=== PATIENT | female | born 1985 | race Caucasian/White ===

== ENCOUNTER 2018-10-23 13:01 | Inpatient (IN) | payer OTHER ==
[2018-10-23] MEDS ORDERED: SODIUM CHLORIDE 0.9% 1,000 ML IV STA (13:32)
[2018-10-23] MEDS ORDERED: ACETAMINOPHEN TAB 325 MG TAB PO STA (13:32)
[2018-10-23] MEDS ORDERED: LORazepam 2 MG/ML INJ IV STA (13:33)
--- NOTE | 2018-10-23 13:42 | ED ---
General Adult HPI - General Source: patient, RN notes reviewed Mode of arrival: EMS Limitations: no limitations <Michael Gupta - Last Filed: 10/23/18 17:49> <Joshua Dove - Last Filed: 10/23/18 17:59> - General Chief complaint: Chest Pain Stated complaint: anxiety Time Seen by Provider: 10/23/18 13:05 - History of Present Illness Initial comments: 33-year-old female with a past medical history of anxiety, MRSA, IV drug abuse presents to the emergency department for a chief complaint of chest pain. Patient states that she started to have an anxiety attack yesterday because she was supposed to go to [place] for Xanax and heroin use. She never made it to [place]. States that her symptoms are left-sided chest pain with shortness of breath. States that breathing makes this pain worse. States that she has had pain like this before but the pain is always on the right side. States movement and touching the area makes the pain worse as well. Denies any fevers or chills. No history of blood clots.Patient has no other complaints at this time including abdominal pain, nausea or vomiting, headache, or visual changes. (Michael Gupta) - Related Data Home Medications Medication Instructions Recorded Confirmed buPROPion HCL [Wellbutrin XL] 150 mg PO DAILY 10/23/18 10/23/18 Allergies Allergy/AdvReac Type Severity Reaction Status Date / Time No Known Allergies Allergy Verified 10/23/18 13:43 Review of Systems ROS Other: All systems not noted in ROS Statement are negative. <Michael Gupta - Last Filed: 10/23/18 17:49> ROS Other: All systems not noted in ROS Statement are negative. <Joshua Dove - Last Filed: 10/23/18 17:59> ROS Statement: Those systems with pertinent positive or pertinent negative responses have been documented in the HPI. Past Medical History Additional Past Medical History / Comment(s): anxiety History of Any Multi-Drug Resistant Organisms: MRSA Date of last positivie culture/infection: 2019 Past Surgical History: Back Surgery Past Psychological History: Anxiety, Panic Disorder Smoking Status: Current every day smoker Past Alcohol Use History: None Reported Past Drug Use History: Heroin, Prescription Drug Abuse <Michael Gupta - Last Filed: 10/23/18 17:49> General Exam Limitations: no limitations General appearance: alert, in no apparent distress Head exam: Present: atraumatic, normocephalic, normal inspection Eye exam: Present: normal appearance, PERRL, EOMI. Absent: scleral icterus, conjunctival injection, periorbital swelling ENT exam: Present: normal exam, mucous membranes moist Neck exam: Present: normal inspection, full ROM. Absent: tenderness, meningismus, lymphadenopathy Respiratory exam: Present: chest wall tenderness (Tenderness noted to the anterior chest wall), decreased breath sounds. Absent: respiratory distress, wheezes, rales, rhonchi, stridor Cardiovascular Exam: Present: regular rate, normal rhythm, normal heart sounds. Absent: systolic murmur, diastolic murmur, rubs, gallop, clicks Neurological exam: Present: alert, oriented X3, CN II-XII intact Psychiatric exam: Present: normal affect, normal mood <Michael Gupta - Last Filed: 10/23/18 17:49> Course <Michael Gupta - Last Filed: 10/23/18 17:49> <Joshua Dove - Last Filed: 10/23/18 17:59> Vital Signs 10/23/18 10/23/18 13:12 17:00 Temperature 101.2 F H 98.6 F Pulse Rate 98 Respiratory 20 Rate Blood Pressure 117/76 O2 Sat by Pulse 97 Oximetry - Reevaluation(s) Reevaluation #1: 10/23/18 16:00 She refused to go to CAT scan until having something to eat. I discussed with her that this is not appropriate as he need to know what is wrong with her before allowing her to eat. Patient states she refuses and will leave. I did allow patient of apple sauce and she does agree to CAT scan however now there are multiple traumas and CAT scan cannot take her until that is completed. (Michael Gupta) Reevaluation #2: 10/23/18 17:11 Patient stating she is going to leave AMA if he do not give her food. I did let patient eat although CAT scan results are not back. (Michael Gupta) 10/23/18 17:58 PG supervision: I personally evaluate this case he does demonstrate evidence consistent with possible endocarditis/pericarditis. Patient will be admitted place an IV antibiotics she does have risk factors consistent with the above. I did discuss case with Dr. Rivera. I do agree with the assessment and plan at this time (Joshua Dove) EKG Findings - EKG Comments: EKG Findings:: Normal sinus rhythm, ventricular rate 93, CO interval and 60, QTC 442, no evidence of ST elevation or depression <Michael Gupta - Last Filed: 10/23/18 17:49> Medical Decision Making - Lab Data Result diagrams: 10/23/18 14:14 10/23/18 14:14 <Michael Gupta - Last Filed: 10/23/18 17:49> - Lab Data Result diagrams: 10/23/18 14:14 10/23/18 14:14 <Joshua Dove - Last Filed: 10/23/18 17:59> - Medical Decision Making 33-year-old female with a past medical history of IV drug abuse with heroin presents to the emergency department for a chief complaint of pleuritic chest pain. States she thought she was having a heart attack. She states the pain is sharp and stabbing on the left side of her chest and reading makes this pain worse. States it is also painful to touch and with movement. On presentation patient does have a fever of 101.3 and is tachycardic in the low 100s. Given Tylenol which did decrease her fever. Examination does reveal a reproducible left sided chest pain. No evidence of Osler's nodes. CBC does show a white count of 11.1 with a left shift. CMP shows magnesium 1.4, this was replaced with a gram of magnesium. Plasma lactic acid was 2.1, patient given fluids however never became hypotensive here in the emergency department. Troponin is negative. Urinalysis does not show any evidence of infection. Influenza negative. Chest x-ray shows no acute cardiopulmonary process. CT chest angiogram shows no acute process. No evidence for pulmonary embolism. Aorta is unremarkable. Given that patient is an IV drug user with pleuritic chest pain and a fever she will be admitted for possible endocarditis. Started on vancomycin and cefepime. Dr. Dove spoke with Dr. rivera who accepts admission. (Michael Gupta) - Lab Data Lab Results 05/23/19 05/23/19 05/23/19 Range/Units 14:14 14:14 14:14 WBC 11.1 H (3.8-10.6) k/uL RBC 4.64 (3.80-5.40) m/uL Hgb 12.9 (11.4-16.0) gm/dL Hct 39.9 (34.0-46.0) % MCV 86.1 (80.0-100.0) fL MCH 27.9 (25.0-35.0) pg MCHC 32.4 (31.0-37.0) g/dL RDW 14.7 (11.5-15.5) % Plt Count 250 (150-450) k/uL Neutrophils % 92 % Lymphocytes % 3 % Monocytes % 3 % Eosinophils % 1 % Basophils % 0 % Neutrophils # 10.2 H (1.3-7.7) k/uL Lymphocytes # 0.4 L (1.0-4.8) k/uL Monocytes # 0.4 (0-1.0) k/uL Eosinophils # 0.1 (0-0.7) k/uL Basophils # 0.0 (0-0.2) k/uL PT 11.0 (9.0-12.0) sec INR 1.0 (<1.2) APTT 22.3 (22.0-30.0) sec D-Dimer 0.71 H (<0.60) mg/L FEU Sodium 137 (137-145) mmol/L Potassium 4.4 (3.5-5.1) mmol/L Chloride 100 (98-107) mmol/L Carbon Dioxide 27 (22-30) mmol/L Anion Gap 10 mmol/L BUN 13 (7-17) mg/dL Creatinine 0.55 (0.52-1.04) mg/dL Est GFR (CKD-EPI)AfAm >90 (>60 ml/min/1.73 sqM) Est GFR (CKD-EPI)NonAf >90 (>60 ml/min/1.73 sqM) Glucose 125 H (74-99) mg/dL Lactic Ac Sepsis Rflx Plasma Lactic Acid Kyle (0.7-2.0) mmol/L Calcium 9.3 (8.4-10.2) mg/dL Magnesium 1.4 L (1.6-2.3) mg/dL Total Bilirubin 0.7 (0.2-1.3) mg/dL AST 23 (14-36) U/L ALT 22 (9-52) U/L Alkaline Phosphatase 44 (38-126) U/L Troponin I (0.000-0.034) ng/mL NT-Pro-B Natriuret Pep pg/mL Total Protein 7.4 (6.3-8.2) g/dL Albumin 4.0 (3.5-5.0) g/dL Amylase 39 (30-110) U/L Lipase 39 (23-300) U/L Urine Color Urine Appearance (Clear) Urine pH (5.0-8.0) Ur Specific [place] (1.001-1.035) Urine Protein (Negative) Urine Glucose (UA) (Negative) Urine Ketones (Negative) Urine Blood (Negative) Urine Nitrite (Negative) Urine Bilirubin (Negative) Urine Urobilinogen (<2.0) mg/dL Ur Leukocyte Esterase (Negative) Urine RBC (0-5) /hpf Urine WBC (0-5) /hpf Ur Squamous Epith Cells (0-4) /hpf Urine Bacteria (None) /hpf Urine Mucus (None) /hpf Urine HCG, Qual (Not Detectd) Influenza Type A RNA (Not Detectd) Influenza Type B (PCR) (Not Detectd) 10/23/18 10/23/18 10/23/18 Range/Units 14:14 14:14 14:14 WBC (3.8-10.6) k/uL RBC (3.80-5.40) m/uL Hgb (11.4-16.0) gm/dL Hct (34.0-46.0) % MCV (80.0-100.0) fL MCH (25.0-35.0) pg MCHC (31.0-37.0) g/dL RDW (11.5-15.5) % Plt Count (150-450) k/uL Neutrophils % % Lymphocytes % % Monocytes % % Eosinophils % % Basophils % % Neutrophils # (1.3-7.7) k/uL Lymphocytes # (1.0-4.8) k/uL Monocytes # (0-1.0) k/uL Eosinophils # (0-0.7) k/uL Basophils # (0-0.2) k/uL PT (9.0-12.0) sec INR (<1.2) APTT (22.0-30.0) sec D-Dimer (<0.60) mg/L FEU Sodium (137-145) mmol/L Potassium (3.5-5.1) mmol/L Chloride (98-107) mmol/L Carbon Dioxide (22-30) mmol/L Anion Gap mmol/L BUN (7-17) mg/dL Creatinine (0.52-1.04) mg/dL Est GFR (CKD-EPI)AfAm (>60 ml/min/1.73 sqM) Est GFR (CKD-EPI)NonAf (>60 ml/min/1.73 sqM) Glucose (74-99) mg/dL Lactic Ac Sepsis Rflx Plasma Lactic Acid Kyle 2.1 H* (0.7-2.0) mmol/L Calcium (8.4-10.2) mg/dL Magnesium (1.6-2.3) mg/dL Total Bilirubin (0.2-1.3) mg/dL AST (14-36) U/L ALT (9-52) U/L Alkaline Phosphatase (38-126) U/L Troponin I <0.012 (0.000-0.034) ng/mL NT-Pro-B Natriuret Pep 38 pg/mL Total Protein (6.3-8.2) g/dL Albumin (3.5-5.0) g/dL Amylase (30-110) U/L Lipase (23-300) U/L Urine Color Urine Appearance (Clear) Urine pH (5.0-8.0) Ur Specific [place] (1.001-1.035) Urine Protein (Negative) Urine Glucose (UA) (Negative) Urine Ketones (Negative) Urine Blood (Negative) Urine Nitrite (Negative) Urine Bilirubin (Negative) Urine Urobilinogen (<2.0) mg/dL Ur Leukocyte Esterase (Negative) Urine RBC (0-5) /hpf Urine WBC (0-5) /hpf Ur Squamous Epith Cells (0-4) /hpf Urine Bacteria (None) /hpf Urine Mucus (None) /hpf Urine HCG, Qual (Not Detectd) Influenza Type A RNA (Not Detectd) Influenza Type B (PCR) (Not Detectd) 10/23/18 10/23/18 10/23/18 Range/Units 14:24 14:44 14:46 WBC (3.8-10.6) k/uL RBC (3.80-5.40) m/uL Hgb (11.4-16.0) gm/dL Hct (34.0-46.0) % MCV (80.0-100.0) fL MCH (25.0-35.0) pg MCHC (31.0-37.0) g/dL RDW (11.5-15.5) % Plt Count (150-450) k/uL Neutrophils % % Lymphocytes % % Monocytes % % Eosinophils % % Basophils % % Neutrophils # (1.3-7.7) k/uL Lymphocytes # (1.0-4.8) k/uL Monocytes # (0-1.0) k/uL Eosinophils # (0-0.7) k/uL Basophils # (0-0.2) k/uL PT (9.0-12.0) sec INR (<1.2) APTT (22.0-30.0) sec D-Dimer (<0.60) mg/L FEU Sodium (137-145) mmol/L Potassium (3.5-5.1) mmol/L Chloride (98-107) mmol/L Carbon Dioxide (22-30) mmol/L Anion Gap mmol/L BUN (7-17) mg/dL Creatinine (0.52-1.04) mg/dL Est GFR (CKD-EPI)AfAm (>60 ml/min/1.73 sqM) Est GFR (CKD-EPI)NonAf (>60 ml/min/1.73 sqM) Glucose (74-99) mg/dL Lactic Ac Sepsis Rflx Y Plasma Lactic Acid Kyle (0.7-2.0) mmol/L Calcium (8.4-10.2) mg/dL Magnesium (1.6-2.3) mg/dL Total Bilirubin (0.2-1.3) mg/dL AST (14-36) U/L ALT (9-52) U/L Alkaline Phosphatase (38-126) U/L Troponin I (0.000-0.034) ng/mL NT-Pro-B Natriuret Pep pg/mL Total Protein (6.3-8.2) g/dL Albumin (3.5-5.0) g/dL Amylase (30-110) U/L Lipase (23-300) U/L Urine Color Urine Appearance (Clear) Urine pH (5.0-8.0) Ur Specific [place] (1.001-1.035) Urine Protein (Negative) Urine Glucose (UA) (Negative) Urine Ketones (Negative) Urine Blood (Negative) Urine Nitrite (Negative) Urine Bilirubin (Negative) Urine Urobilinogen (<2.0) mg/dL Ur Leukocyte Esterase (Negative) Urine RBC (0-5) /hpf Urine WBC (0-5) /hpf Ur Squamous Epith Cells (0-4) /hpf Urine Bacteria (None) /hpf Urine Mucus (None) /hpf Urine HCG, Qual Not Detected (Not Detectd) Influenza Type A RNA Not Detected (Not Detectd) Influenza Type B (PCR) Not Detected (Not Detectd) 10/23/18 Range/Units 14:46 WBC (3.8-10.6) k/uL RBC (3.80-5.40) m/uL Hgb (11.4-16.0) gm/dL Hct (34.0-46.0) % MCV (80.0-100.0) fL MCH (25.0-35.0) pg MCHC (31.0-37.0) g/dL RDW (11.5-15.5) % Plt Count (150-450) k/uL Neutrophils % % Lymphocytes % % Monocytes % % Eosinophils % % Basophils % % Neutrophils # (1.3-7.7) k/uL Lymphocytes # (1.0-4.8) k/uL Monocytes # (0-1.0) k/uL Eosinophils # (0-0.7) k/uL Basophils # (0-0.2) k/uL PT (9.0-12.0) sec INR (<1.2) APTT (22.0-30.0) sec D-Dimer (<0.60) mg/L FEU Sodium (137-145) mmol/L Potassium (3.5-5.1) mmol/L Chloride (98-107) mmol/L Carbon Dioxide (22-30) mmol/L Anion Gap mmol/L BUN (7-17) mg/dL Creatinine (0.52-1.04) mg/dL Est GFR (CKD-EPI)AfAm (>60 ml/min/1.73 sqM) Est GFR (CKD-EPI)NonAf (>60 ml/min/1.73 sqM) Glucose (74-99) mg/dL Lactic Ac Sepsis Rflx Plasma Lactic Acid Kyle (0.7-2.0) mmol/L Calcium (8.4-10.2) mg/dL Magnesium (1.6-2.3) mg/dL Total Bilirubin (0.2-1.3) mg/dL AST (14-36) U/L ALT (9-52) U/L Alkaline Phosphatase (38-126) U/L Troponin I (0.000-0.034) ng/mL NT-Pro-B Natriuret Pep pg/mL Total Protein (6.3-8.2) g/dL Albumin (3.5-5.0) g/dL Amylase (30-110) U/L Lipase (23-300) U/L Urine Color Yellow Urine Appearance Clear (Clear) Urine pH 5.5 (5.0-8.0) Ur Specific [place] 1.025 (1.001-1.035) Urine Protein Negative (Negative) Urine Glucose (UA) Negative (Negative) Urine Ketones Negative (Negative) Urine Blood Negative (Negative) Urine Nitrite Negative (Negative) Urine Bilirubin Negative (Negative) Urine Urobilinogen <2.0 (<2.0) mg/dL Ur Leukocyte Esterase Large H (Negative) Urine RBC 1 (0-5) /hpf Urine WBC 6 H (0-5) /hpf Ur Squamous Epith Cells 4 (0-4) /hpf Urine Bacteria Rare H (None) /hpf Urine Mucus Occasional H (None) /hpf Urine HCG, Qual (Not Detectd) Influenza Type A RNA (Not Detectd) Influenza Type B (PCR) (Not Detectd) Disposition Is patient prescribed a controlled substance at d/c from ED?: No Time of Disposition: 17:51 <Michael Gupta - Last Filed: 10/23/18 17:49> <Joshua Dove - Last Filed: 10/23/18 17:59> Clinical Impression: Pleuritic chest pain, IV drug abuse, Fever Disposition: ADMITTED IP TO THIS HOSP Condition: Fair Referrals: Jonathan Morales DO [Primary Care Provider] - 1-2 days
[2018-10-23 14:34] LABS: Basophils % (A) 0 %; Eosinophils # (A) 0.1 k/uL (0-0.7); Eosinophils % (A) 1 %; HCT 39.9 % (34.0-46.0); HGB 12.9 gm/dL (11.4-16.0); Lymphocytes # (A) 0.4 k/uL (1.0-4.8); Lymphocytes % (A) 3 %; MCH 27.9 pg (25.0-35.0); MCHC 32.4 g/dL (31.0-37.0); MCV 86.1 fL (80.0-100.0); Mean Platelet Volume 6.8; Monocytes # (A) 0.4 k/uL (0-1.0); Monocytes % (A) 3 %; Neutrophils # (A) 10.2 k/uL (1.3-7.7); Neutrophils % (A) 92 %; Platelet Count 250 k/uL (150-450); RBC 4.64 m/uL (3.80-5.40); RDW 14.7 % (11.5-15.5); WBC 11.1 k/uL (3.8-10.6)
[2018-10-23] MEDS ORDERED: NICOTINE 21MG/24HR PATCH TRANSDERM STA (14:40)
[2018-10-23 14:42] LABS: ALT 22 U/L (9-52); AST 23 U/L (14-36); Alkaline Phosphatase 44 U/L (38-126); Amylase 39 U/L (30-110); Anion Gap 10 mmol/L; Blood Urea Nitrogen 13 mg/dL (7-17); Calcium 9.3 mg/dL (8.4-10.2); Carbon Dioxide 27 mmol/L (22-30); Chloride 100 mmol/L (98-107); Glucose 125 mg/dL (74-99); Lipase 39 U/L (23-300); Magnesium 1.4 mg/dL (1.6-2.3); Potassium 4.4 mmol/L (3.5-5.1); Sodium 137 mmol/L (137-145); Total Bilirubin 0.7 mg/dL (0.2-1.3); Total Protein 7.4 g/dL (6.3-8.2)
[2018-10-23 14:54] LABS: Partial Thromboplastin Time 22.3 sec (22.0-30.0)
--- NOTE | 2018-10-23 14:54 | XR ---
EXAMINATION TYPE: XR chest 2V DATE OF EXAM: 10/23/2018 COMPARISON: NONE HISTORY: Fever, chest pain and anxiety. TECHNIQUE: Frontal and lateral views of the chest are obtained. FINDINGS: There is no focal air space opacity, pleural effusion, or pneumothorax seen. The cardiac silhouette size is within normal limits. The osseous structures are intact. IMPRESSION: No acute cardiopulmonary process.
[2018-10-23 14:56] LABS: D-Dimer 0.71 mg/L FEU (<0.60)
[2018-10-23 14:57] LABS: Appearance,Urine Clear (Clear); Bacteria,Urine Rare /hpf; Bilirubin,Urine Negative (Negative); Blood,Urine Negative (Negative); Color,Urine Yellow; Glucose,Urine (UA) Negative (Negative); Ketones,Urine Negative (Negative); Leukocyte Esterase,Urine Large (Negative); Mucus,Urine Occasional /hpf; Nitrite,Urine Negative (Negative); PH, Urine 5.5 (5.0-8.0); Protein,Urine Negative (Negative); RBC,Urine 1 /hpf (0-5); Specific Gravity,Urine 1.025 (1.001-1.035); Squamous Epithelial Cell,Urine 4 /hpf (0-4); Urobilinogen,Urine <2.0 mg/dL (<2.0); WBC,Urine 6 /hpf (0-5)
[2018-10-23] MEDS ORDERED: MAGNESIUM SULFATE-D5W PMX 1 GM in DEXTROSE/WATER 1 100ML.BAG IVPB ONE (15:16)
[2018-10-23] MEDS ORDERED: KETOROLAC 30 MG/ML 1 ML VIAL IVP STA (15:57)
[2018-10-23] MEDS ORDERED: VANCOMYCIN IV PER PHARMACY 1 EACH MISC MISCELLANE PRN (17:11)
[2018-10-23] MEDS ORDERED: VANCOMYCIN 1,250 MG in SODIUM CHLORIDE 0.9% 250 ML IVPB STA (17:16)
--- NOTE | 2018-10-23 17:23 | CT ---
EXAMINATION TYPE: CT chest angio for PE with contrast and with 3-D reconstruction renderings DATE OF EXAM: 10/23/2018 COMPARISON: None HISTORY: Chest pain. CT DLP: 158.7 mGycm Automated exposure control for dose reduction was used. CONTRAST: CT Chest for pulmonary embolism performed with with IV Contrast, patient injected with 61 m L of Isovue 370. FINDINGS: There is patient motion artifact on all images. LUNGS: The lungs are grossly clear, there is no concerning parenchymal mass or nodule identified. T here is no pleural effusion or pneumothorax seen. The tracheobronchial tree is patent. MEDIASTINUM: There is satisfactory enhancement of the pulmonary artery and its branches, there is no CT evidence for pulmonary embolism. There are no greater than 1 cm hilar or mediastinal lymph nodes. Aorta is unremarkable. No pericardial effusion is seen. OTHER: No additional significant abnormality is seen. IMPRESSION: No acute processes.
[2018-10-23] MEDS ORDERED: KETOROLAC 30 MG/ML 1 ML VIAL IVP PRN (17:53)
[2018-10-23] MEDS ORDERED: NALOXONE 0.4 MG/ML 1 ML VIAL IV PRN (17:53)
[2018-10-23 19:48] LABS: Amphetamine Screen,Urine Not Detected (NotDetected); Barbiturate Screen,Urine Not Detected (NotDetected); Benzodiazepines Screen,Urine Not Detected (NotDetected); Cocaine Screen,Urine Detected (NotDetected); Methadone Screen, Urine Not Detected (NotDetected); Opiate Screen,Urine Detected (NotDetected); Oxycodone Screen, Urine Not Detected (NotDetected); Phencyclidine Screen,Urine Not Detected (NotDetected); Tricyclic Antidepressant,Urine Not Detected (NotDetected); Urn Cannabinoid Scrn Not Detected (NotDetected)
[2018-10-23] MEDS: CEFEPIME 2 GM in SODIUM CHLORIDE 0.9% 100 ML IVPB SCH (21:02)
[2018-10-23] MEDS: LORazepam 2 MG/ML INJ IV PRN (22:40)
[2018-10-24] MEDS: VANCOMYCIN 1,250 MG in SODIUM CHLORIDE 0.9% 250 ML IVPB SCH ×2 (03:21→09:52)
[2018-10-24] MEDS: CEFEPIME 2 GM in SODIUM CHLORIDE 0.9% 100 ML IVPB SCH ×3 (05:24→20:09)
[2018-10-24 06:37] LABS: Magnesium 1.7 mg/dL (1.6-2.3)
[2018-10-24] MEDS ORDERED: ACETAMINOPHEN TAB 325 MG TAB PO PRN (07:59)
--- NOTE | 2018-10-24 08:19 | P.CRDCN ---
History of Present Illness Consult date: 10/24/18 Requesting physician: Alok E Rickey Consult reason: chest pain Chief complaint: Chest pain History of present illness: This is a 33-year-old female with history of anxiety, MRSA, nicotine dependence, prescription and street drug abuse, according to the patient, she developed a pain in the left side of her chest more underneath the left breast area into her rib area. She apparently was on her way to [place] for drug rehab, however he did not make it there because she came to the hospital for further evaluation and treatment. Chest x-ray did not reveal any acute cardiopulmonary process. CTA of the chest did not reveal any significant abnormality. EKG shows a normal sinus rhythm with nonspecific ST-T wave changes noted in the anterior leads. Temperature 101.2 on arrival here. Blood pressure 118/70 with a heart rate in the 90s, 97% on room air. Blood pressure 128/70 with a heart rate in the 90s low 100s, 99% on room air this morning. White blood cell count 11.1, hemoglobin 12.9, platelet count 250. D-dimer 0.7. Sodium 137, potassium 4.4, BUN 13 and creatinine 0.5. Lactic acid on arrival here 2.3, magnesium 1.4-1.7 this morning. Drug screen positive for cocaine and opiates. Troponins have been negative 2. At the time of my examination this morning, patient wants to sleep, she's really not keen on answering any questions, she is requesting pain medication for generalized pain. She admits to having pain underneath her left breast area into her rib, worse with deep breathing and on palpation of the chest wall. Past Medical History Additional Past Medical History / Comment(s): anxiety History of Any Multi-Drug Resistant Organisms: MRSA Date of last positivie culture/infection: 2018 MDRO Source:: BACK AFTER SX Past Surgical History: Back Surgery Past Anesthesia/Blood Transfusion Reactions: No Reported Reaction Past Psychological History: Anxiety, Panic Disorder Smoking Status: Current every day smoker Past Alcohol Use History: None Reported Past Drug Use History: Cocaine, Heroin, IV Drug Use, Prescription Drug Abuse - Past Family History Mother History Unknown: Yes Medications and Allergies Home Medications Medication Instructions Recorded Confirmed Type buPROPion HCL [Wellbutrin XL] 150 mg PO DAILY 10/23/18 10/23/18 History Allergies Allergy/AdvReac Type Severity Reaction Status Date / Time No Known Allergies Allergy Verified 10/23/18 18:28 Physical Exam Vitals: Vital Signs Temp Pulse Pulse Resp BP BP Pulse Ox 10/24/18 03:14 97.6 F 108 H 17 128/77 99 10/24/18 00:00 98.2 F 74 18 125/74 100 10/23/18 20:00 80 12 10/23/18 19:56 98.5 F 79 14 107/56 99 10/23/18 19:38 99.2 F 98 16 106/56 96 10/23/18 18:00 98.4 F 10/23/18 17:00 98.6 F 10/23/18 13:12 101.2 F H 98 20 117/76 97 Intake and Output 10/23/18 10/24/18 10/24/18 22:59 06:59 14:59 Intake Total 350 Balance 350 Intake: Intake, IV Titration 350 Amount Magnesium Sulfate-D5w Pmx 100 1 gm In Dextrose/Water 1 100ml.bag @ 100 mls/hr IVPB ONCE ONE Rx#: [id number] Vancomycin 1,250 mg In 250 Sodium Chloride 0.9% 250 ml @ 125 mls/hr IVPB [facility] Rx#:[id number] Other: Voiding Method Toilet Toilet # Voids 1 Weight 55.3 kg PHYSICAL EXAMINATION: GENERAL:33-year-old female, very sleepy, mildly lethargic in no acute distress HEENT: Head is atraumatic, normocephalic. Pupils equal, round. Sclera anicteric. Conjunctiva are clear. Mucous membranes of the mouth are moist. Neck is supple. There is no elevated jugular venous pressure. No carotid bruit is heard. HEART EXAMINATION: Heart S1 and S2 systolic murmur is heard CHEST EXAMINATION: Lungs are clear to auscultation and precussion. Positive chest wall tenderness is noted on palpation or with deep breathing. ABDOMEN: Soft, nontender. Bowel sounds are heard. No organomegaly noted. EXTREMITIES: 2+ peripheral pulses with no evidence of peripheral edema and no calf tenderness noted. NEUROLOGIC Patient is sleepy, oriented 3 . Results 10/23/18 14:14 10/24/18 06:00 Cardiac Enzymes 05/23/19 05/23/19 05/23/19 Range/Units 14:14 14:14 19:28 AST 23 (14-36) U/L Troponin I <0.012 <0.012 (0.000-0.034) ng/mL Coagulation 10/23/18 Range/Units 14:14 PT 11.0 (9.0-12.0) sec APTT 22.3 (22.0-30.0) sec CBC 10/23/18 Range/Units 14:14 WBC 11.1 H (3.8-10.6) k/uL RBC 4.64 (3.80-5.40) m/uL Hgb 12.9 (11.4-16.0) gm/dL Hct 39.9 (34.0-46.0) % Plt Count 250 (150-450) k/uL Comprehensive Metabolic Panel 10/23/18 10/24/18 Range/Units 14:14 06:00 Sodium 137 (137-145) mmol/L Potassium 4.4 (3.5-5.1) mmol/L Chloride 100 (98-107) mmol/L Carbon Dioxide 27 (22-30) mmol/L BUN 13 (7-17) mg/dL Creatinine 0.55 0.70 (0.52-1.04) mg/dL Glucose 125 H (74-99) mg/dL Calcium 9.3 (8.4-10.2) mg/dL AST 23 (14-36) U/L ALT 22 (9-52) U/L Alkaline Phosphatase 44 (38-126) U/L Total Protein 7.4 (6.3-8.2) g/dL Albumin 4.0 (3.5-5.0) g/dL Current Medications Generic Name Dose Route Start Last Admin Trade Name Freq PRN Reason Stop Dose Admin Acetaminophen 325 mg 10/24/18 07:59 Tylenol Tab PO Q6HR PRN Fever and/ or Pain Cefepime HCl 2 gm/ Sodium 100 mls @ 200 mls/hr 10/23/18 18:30 10/24/18 05:24 Chloride IVPB Not Given Q8H JUANIS Vancomycin HCl 1,250 mg/ 250 mls @ 125 mls/hr 10/24/18 02:00 10/24/18 03:21 Sodium Chloride IVPB 125 mls/hr Q8H JAUNIS Administration Ketorolac Tromethamine 30 mg 10/23/18 17:53 Toradol IVP 10/28/18 17:54 Q6HR PRN Moderate Pain Lorazepam 0.5 mg 10/23/18 17:53 10/23/18 22:40 Ativan IV 0.5 mg Q6HR PRN Administration Anxiety Naloxone HCl 0.2 mg 10/23/18 17:53 Narcan IV Q2M PRN Opioid Reversal Intake and Output 10/23/18 10/24/18 10/24/18 22:59 06:59 14:59 Intake Total 350 Balance 350 Intake: Intake, IV Titration 350 Amount Magnesium Sulfate-D5w Pmx 100 1 gm In Dextrose/Water 1 100ml.bag @ 100 mls/hr IVPB ONCE ONE Rx#: [id number] Vancomycin 1,250 mg In 250 Sodium Chloride 0.9% 250 ml @ 125 mls/hr IVPB Q8H [facility] Rx#:[id number] Other: Voiding Method Toilet Toilet # Voids 1 Weight 55.3 kg 10/23/18 14:14 10/24/18 06:00 EKG Interpretations (text) EKG shows a normal sinus rhythm with nonspecific ST-T wave changes noted in the anterior leads Assessment and Plan Plan: Assessment and plan #1 chest pain, pleuritic or musculoskeletal in nature, atypical for acute coronary syndrome. Troponins negative 2. EKG shows a normal sinus rhythm with nonspecific ST-T wave changes. CTA of the chest is negative for pulmonary embolism. #2 elevated temperature on arrival with possible sepsis, lactic acid was el evated on arrival as well, mild elevation of white blood cell count. #3 history of prescription and street drug abuse, positive for cocaine on arrival here #4 nicotine dependence #5 hypomagnesemia Plan We will obtain an echocardiogram with Doppler study. Obtain a third troponin value. Patient has been initiated on IV antibiotics and her magnesium has been replaced. Further recommendations to follow. DNP note has been reviewed, I agree with a documented findings and plan of care. Patient was seen and examined.
[2018-10-24] MEDS ORDERED: Magnesium Replacement Protocol 1 EACH MISC MISCELLANE PRN (09:18)
[2018-10-24] MEDS ORDERED: Potassium Replacement Protocol 1 EACH MISC MISCELLANE PRN (09:18)
[2018-10-24] MEDS ORDERED: LOPERAMIDE 2 MG CAP PO PRN (09:23)
[2018-10-24] MEDS ORDERED: VANCOMYCIN IV PER PHARMACY 1 EACH MISC MISCELLANE PRN (09:25)
--- NOTE | 2018-10-24 09:30 | P.HPIM ---
History of Present Illness This is a pleasant 53 years old female with past medical history of anxiety and back surgery. Previous history of illicit drug abuse including cocaine and heroin . Presents because of chest pain she supposed to go to [facility] for withdrawal from Xanax and heroine use. Also patient has recent history of MRSA infection in her spine about 2 months ago status post surgery, at [facility], patient was discharge with 3 weeks of antibiotics with vancomycin and PICC line as she was still in the however she was not following up with her doctors when she left the hospital. She follows up with Dr. Jonathan Forde visited him about one year ago. She has history of bipolar disorder, panic attack and sarthak. She used to be on Wellbutrin and Xanax for that but she does not follow up with a psychiatrist. Now presents because of chest pain and dyspnea of 3 days' duration. Patient says that the chest pain is sharp on the left side about 7-8/10 in severity and aggravated by cough, associated with some dyspnea however she does not have paroxysmal nocturnal dyspnea. She also complaining of some back pain, about 10/10 in severity which is worse than before as per patient, with no weakness in her lower legs or abnormal sensation, or numbness in the perineal area. Patient also complaining of from cough and green phlegm. No dysuria or change in frequency of urination, she has good bowel movement. She can walk. She has sweats and cold feeling. Patient looks agitated Patient states she injects her wean in her hands and she shares needles. She is cocaine and Heroine, she smokes about half pack per day but she denies alcohol Patient has been febrile of 101.2 on admission, she is mildly tachycardic at 10 8. Labs showing elevated WBC of 11.1 K. INR 1.0. BMP was unremarkable, elevated lactic acid 2.3. Troponin is negative at less than 0.0 12. Liver enzymes are not elevated. Urinalysis showing WBC of 6 and large leukocyte esterase. test is negative. Urine drug 6 brain is positive for opiates and cocaine fluids as negative. We'll send blood culture and urine culture. CT in November of the thorax showing no consolidation or pleural effusion, no PE. Chest x-ray: No acute process. Patient was started on IV fluids, Ativan, nicotine patch, Toradol and vancomycin and cefepime. Toradol was started but was a stepped. Time Study Statistician already evaluated the patient and recommended checking more troponins and echocardiogram. Patient has negative urine test. Her serum test but patient declined, risks benefits and alternatives are explained to the patient including teratogenic effects and she verbalized understanding but refused the test Prognosis is guarded Review of Systems CONSTITUTIONAL: No fever, no malaise, no fatigue. HEENT: No recent visual problems or hearing problems. Denied any sore throat. CARDIOVASCULAR: No orthopnea, PND, no palpitations, no syncope. PULMONARY: No shortness of breath, no cough, no hemoptysis. GASTROINTESTINAL: No diarrhea, no nausea, no vomiting, no abdominal pain. Normoactive bowel sounds. NEUROLOGICAL: No headaches, no weakness, no numbness. HEMATOLOGICAL: Denies any bleeding or petechiae. GENITOURINARY: Denies any burning micturition, frequency, or urgency. MUSCULOSKELETAL/RHEUMATOLOGICAL: Denies any joint pain, swelling, or any muscle pain. ENDOCRINE: Denies any polyuria or polydipsia. Past Medical History Additional Past Medical History / Comment(s): anxiety History of Any Multi-Drug Resistant Organisms: MRSA Date of last positivie culture/infection: 2019 MDRO Source:: BACK AFTER SX Past Surgical History: Back Surgery Past Anesthesia/Blood Transfusion Reactions: No Reported Reaction Past Psychological History: Anxiety, Panic Disorder Smoking Status: Current every day smoker Past Alcohol Use History: None Reported Past Drug Use History: Cocaine, Heroin, IV Drug Use, Prescription Drug Abuse - Past Family History Mother History Unknown: Yes Medications and Allergies Home Medications Medication Instructions Recorded Confirmed Type buPROPion HCL [Wellbutrin XL] 150 mg PO DAILY 10/23/18 10/23/18 History Allergies Allergy/AdvReac Type Severity Reaction Status Date / Time No Known Allergies Allergy Verified 10/23/18 18:28 Physical Exam Vitals: Vital Signs Temp Pulse Pulse Resp BP BP Pulse Ox 10/24/18 03:14 97.6 F 108 H 17 128/77 99 10/24/18 00:00 98.2 F 74 18 125/74 100 10/23/18 20:00 80 12 10/23/18 19:56 98.5 F 79 14 107/56 99 10/23/18 19:38 99.2 F 98 16 106/56 96 10/23/18 18:00 98.4 F 05/23/19 17:00 98.6 F 10/23/18 13:12 101.2 F H 98 20 117/76 97 Intake and Output 10/23/18 10/24/18 10/24/18 22:59 06:59 14:59 Intake Total 350 Balance 350 Intake: Intake, IV Titration 350 Amount Magnesium Sulfate-D5w Pmx 100 1 gm In Dextrose/Water 1 100ml.bag @ 100 mls/hr IVPB ONCE ONE Rx#: [id number] Vancomycin 1,250 mg In 250 Sodium Chloride 0.9% 250 ml @ 125 mls/hr IVPB Q8H [facility] Rx#:[id number] Other: Voiding Method Toilet Toilet # Voids 1 Weight 55.3 kg GENERAL: The patient is alert and oriented x3, not in any acute distress. Well developed, well nourished. HEENT: Pupils are round and equally reacting to light. EOMI. No scleral icterus. No conjunctival pallor. Normocephalic, atraumatic. No pharyngeal erythema. No thyromegaly. CARDIOVASCULAR: S1 and S2 present. No murmurs, rubs, or gallops. PULMONARY: Chest is clear to auscultation, no wheezing or crackles. ABDOMEN: Soft, nontender, nondistended, normoactive bowel sounds. No palpable organomegaly. -MUSCULOSKELETAL: No joint swelling or deformity. Healed Scar in the lower back -EXTREMITIES: No cyanosis, clubbing, or pedal edema. Patient has injection lee on the dorsum of both hands NEUROLOGICAL: Gross neurological examination did not reveal any focal deficits. SKIN: No rashes. Results CBC & Chem 7: 10/23/18 14:14 10/24/18 06:00 Labs: Abnormal Lab Results - Last 24 Hours (Table) 10/23/18 10/23/18 10/23/18 Range/Units 14:14 14:14 14:14 WBC 11.1 H (3.8-10.6) k/uL Neutrophils # 10.2 H (1.3-7.7) k/uL Lymphocytes # 0.4 L (1.0-4.8) k/uL D-Dimer 0.71 H (<0.60) mg/L FEU Glucose 125 H (74-99) mg/dL Plasma Lactic Acid Kyle (0.7-2.0) mmol/L Magnesium 1.4 L (1.6-2.3) mg/dL Ur Leukocyte Esterase (Negative) Urine WBC (0-5) /hpf Urine Bacteria (None) /hpf Urine Mucus (None) /hpf Urine Opiates Screen (NotDetected) Urine Cocaine Screen (NotDetected) 10/23/18 10/23/18 10/23/18 Range/Units 14:14 14:46 14:46 WBC (3.8-10.6) k/uL Neutrophils # (1.3-7.7) k/uL Lymphocytes # (1.0-4.8) k/uL D-Dimer (<0.60) mg/L FEU Glucose (74-99) mg/dL Plasma Lactic Acid Kyle 2.1 H* (0.7-2.0) mmol/L Magnesium (1.6-2.3) mg/dL Ur Leukocyte Esterase Large H (Negative) Urine WBC 6 H (0-5) /hpf Urine Bacteria Rare H (None) /hpf Urine Mucus Occasional H (None) /hpf Urine Opiates Screen Detected H (NotDetected) Urine Cocaine Screen Detected H (NotDetected) 10/23/18 Range/Units 18:18 WBC (3.8-10.6) k/uL Neutrophils # (1.3-7.7) k/uL Lymphocytes # (1.0-4.8) k/uL D-Dimer (<0.60) mg/L FEU Glucose (74-99) mg/dL Plasma Lactic Acid Kyle 2.3 H* (0.7-2.0) mmol/L Magnesium (1.6-2.3) mg/dL Ur Leukocyte Esterase (Negative) Urine WBC (0-5) /hpf Urine Bacteria (None) /hpf Urine Mucus (None) /hpf Urine Opiates Screen (NotDetected) Urine Cocaine Screen (NotDetected) Thrombosis Risk Factor Assmnt - Choose All That Apply Any of the Below Risk Factors Present?: No Other Risk Factors: No Other congenital or acquired thrombophilia - If yes, enter type in comment: No Thrombosis Risk Factor Assessment Level: Very Low Risk Assessment and Plan Assessment: Systemic inflammatory response with fever, tachycardia and leukocytosis Sepsis , possible UTI. Rule out SBE. Substance abuse including cocaine, heroin Recent history of lower spinal infection with MRSA, status post surgery at [facility] about 2 months ago as per patient Low level of magnesium Height lactic acid Cigarette smoker History of bipolar disorder, sarthak History of panic attack Plan: This is a pleasant 53 years old female who presents with sepsis and substance abuse including cocaine and heroine. Continue with antibiotics. Follow-up culture results. Cardiology consult already evaluated the patient. Echocardiogram is ordered. We'll call infectious disease consult. Follow-up culture results. Adjust antibiotics as per infectious disease team which is called. Continue with IV fluids . Continue with the clonidine, symptomatic treatment for her withdrawal. Pain management. Nicotine patch, change vancomycin to pharmacy to dose. Call psych consult. Given patient's recent history of back infection and sepsis with severe back pain, we'll do MRI of the lower back Labs and medication were reviewed.. Continue same treatment. Continue with symptomatic treatment. Resume home medication. Monitor lytes and vitals. DVT and GI prophylaxis. Further recommendations of the clinical course of the patient DVT prophylaxis: Subcutaneous heparin GI Prophylaxis: Pepcid
[2018-10-24] MEDS: SODIUM CHLORIDE 0.9% 1,000 ML IV SCH ×2 (09:52→17:16)
[2018-10-24] MEDS: HEPARIN SODIUM,PORCINE 5,000 UNIT/ML 1 ML VIAL SQ SCH ×2 (09:53→20:13)
[2018-10-24] MEDS: FAMOTIDINE 20 MG/2 ML VIAL IV SCH ×2 (09:53→20:13)
[2018-10-24] MEDS: LORazepam 2 MG/ML INJ IV PRN ×2 (10:05→17:18)
--- NOTE | 2018-10-24 10:20 | ECHOF ---
Referral Reason:chest pain MEASUREMENTS -------- HEIGHT: 154.9 cm WEIGHT: 54.9 kg BP: 128/77 RVIDd: 1.9 cm (< 3.3) IVSd: 0.7 cm (0.6 - 1.1) LVIDd: 4.5 cm (3.9 - 5.3) LVPWd: 0.9 cm (0.6 - 1.1) IVSs: 1.3 cm LVIDs: 2.7 cm LVPWs: 1.5 cm LAESV Index (A-L): 22.01 ml/m Ao Diam: 3.1 cm (2.0 - 3.7) AV Cusp: 1.4 cm (1.5 - 2.6) LA Diam: 2.2 cm (2.7 - 3.8) MV EXCURSION: 19.458 mm (> 18.000) MV EF SLOPE: 225 mm/s (70 - 150) EPSS: 0.4 cm MV E Roberto: 0.77 m/s MV DecT: 285 ms MV A Roberto: 0.78 m/s MV E/A Ratio: 0.98 RAP: 5.00 mmHg RVSP: 17.61 mmHg FINDINGS -------- Sinus rhythm. This was a technically good study. The left ventricular size is normal. Left ventricular wall thickness is normal. Overall left vent ricular systolic function is normal with, an EF between 55 - 60 %. The right ventricle is normal in size. The left atrial size is normal. The right atrial size is normal. Interatrial and interventricular septum intact. The aortic valve is trileaflet and appears structurally normal. The mitral valve is normal. The mitral valve leaflets are mildly thickened. There is trace mitral regurgitation. The tricuspid valve appears structurally normal. Trace tricuspid regurgitation present. The right ventricular systolic pressure, as measured by Doppler, is 17.61mmHg. Pulmonic valve appears structurally normal. The aortic root size is normal. IVC Not well visulized. There is a trivial pericardial effusion present. CONCLUSIONS -------- 1. Sinus rhythm. 2. This was a technically good study. 3. The left ventricular size is normal. 4. Left ventricular wall thickness is normal. 5. Overall left ventricular systolic function is normal with, an EF between 55 - 60 %. 6. The right ventricle is normal in size. 7. The left atrial size is normal. 8. The right atrial size is normal. 9. Interatrial and interventricular septum intact. 10. The aortic valve is trileaflet and appears structurally normal. 11. The mitral valve is normal. 12. The mitral valve leaflets are mildly thickened. 13. There is trace mitral regurgitation. 14. The tricuspid valve appears structurally normal. 15. Trace tricuspid regurgitation present. 16. The right ventricular systolic pressure, as measured by Doppler, is 17.61mmHg. 17. Pulmonic valve appears structurally normal. 18. The aortic root size is normal. 19. IVC Not well visulized. 20. There is a trivial pericardial effusion present. AERONAUTICS TEACHER: Alisia Turner RDCS
[2018-10-24] MEDS ORDERED: LORazepam 2 MG/ML INJ IV STA (10:34)
[2018-10-24] MEDS: traMADol 50 MG TAB PO PRN ×2 (12:38→17:17)
[2018-10-24] MEDS: VANCOMYCIN 1,000 MG in SODIUM CHLORIDE 0.9% 250 ML IVPB SCH (17:18)
[2018-10-24] MEDS: NICOTINE 21MG/24HR PATCH TRANSDERM SCH (18:04)
[2018-10-24] MEDS: cloNIDine HCL 0.1 MG TAB PO SCH (20:09)
--- NOTE | 2018-10-24 21:58 | P.CONS ---
History of Present Illness - Reason for Consult Consult date: 10/24/18 Possible endocarditis Requesting physician: Alok E Sheet - Chief Complaint Chest pain 1 day - History of Present Illness Patient is a 33-year-old female with a past medical history significant for IV drug use currently active drug use last IV injection was on the dorsum aspect of her left hand presenting to the ER at [facility] yesterday with chief complaints of chest pain patient's symptoms started. She presented to hospital pain has been mostly the left side of the chest is coming to be sharp almost 10 out of 10 with no significant radiation patient denies having any cough or any sputum production with associated shortness of breath denies having any headache or URI symptoms denies having any nausea no vomiting no abdominal pain or any diarrhea currently denies having any swelling or redness on the dorsum aspect of her left hand which injected last denies having any sore any other part of the body on presentation the patient d id have a fever of 101F and did have mildly elevated white count of 11.1 thousand, the patient did have a chest x-ray which was reported negative for any acute process she also have a CT angiogram that was negative and echocardiogram has been done with no evidence of any vegetation patient has been empirically treated with cefepime and vancomycin and infectious disease was consulted for further recommendation regarding antibiotic therapy Review of Systems Review of system Constitutional: The patient fever and chills, the patient does complain of weakness. Eyes: No complaint ENT: No complaint Respiratory: As per history of present illness Cardiovascular: As per history of present illness Gastrointestinal: No complaint Genitourinary: No complaint Musculoskeletal: No complaint Integumentary: No complaint Endocrine : No complaint Psycologial : No complaint Neurological: No complaint. Past Medical History Additional Past Medical History / Comment(s): anxiety History of Any Multi-Drug Resistant Organisms: MRSA Year Discovered:: 2019 MDRO Source:: BACK AFTER SX Past Surgical History: Back Surgery Past Anesthesia/Blood Transfusion Reactions: No Reported Reaction Past Psychological History: Anxiety, Panic Disorder Smoking Status: Current every day smoker Past Alcohol Use History: None Reported Past Drug Use History: Cocaine, Heroin, IV Drug Use, Prescription Drug Abuse - Past Family History Mother History Unknown: Yes Medications and Allergies Home Medications Medication Instructions Recorded Confirmed Type buPROPion HCL [Wellbutrin XL] 150 mg PO DAILY 10/23/18 10/23/18 History Allergies Allergy/AdvReac Type Severity Reaction Status Date / Time No Known Allergies Allergy Verified 10/23/18 18:28 Physical Exam Vitals: Vital Signs Temp Pulse Pulse Resp BP BP Pulse Ox 10/24/18 12:00 98.9 F 92 16 130/68 98 10/24/18 07:50 100.8 F H 105 H 16 133/75 99 10/24/18 03:14 97.6 F 108 H 17 128/77 99 10/24/18 00:00 98.2 F 74 18 125/74 100 10/23/18 20:00 80 12 10/23/18 19:56 98.5 F 79 14 107/56 99 10/23/18 19:38 99.2 F 98 16 106/56 96 10/23/18 18:00 98.4 F 10/23/18 17:00 98.6 F Intake and Output 10/24/18 10/24/18 10/24/18 06:59 14:59 22:59 Intake Total 462 Balance 462 Intake: Oral 462 Other: Voiding Method Toilet # Voids 1 Weight 55.3 kg General: The patient is awake and alert, in no distress. Skin: no rashes and no masses palpable. Right hand dorsum with no swelling r edness or any drainage Eye: Pupils are equal, round, there is normal conjunctiva bilaterally. Ears, nose, mouth and throat: There are moist mucous membranes and no oral lesions. Neck: The neck is supple, there is no thyromegaly. Cardiovascular: S1-S2 regular rate and rhythm. No murmur. Respiratory: Unlabored breathing clear to auscultation bilaterally Gastrointestinal: Soft, non-distended, non-tender abdomen without masses or organomegaly noted. Neurological: There are no obvious motor or sensory deficits. Coordination appears grossly intact. Speech is normal. Psychiatric: Patient is awake and alert and oriented 3, appropriate mood & affect, normal judgment. Results CBC & Chem 7: 10/23/18 14:14 10/24/18 06:00 Labs: Abnormal Lab Results - Last 24 Hours (Table) 10/23/18 10/23/18 Range/Units 14:46 18:18 Plasma Lactic Acid Kyle 2.3 H* (0.7-2.0) mmol/L Urine Opiates Screen Detected H (NotDetected) Urine Cocaine Screen Detected H (NotDetected) Assessment and Plan Assessment: 1-patient admitted hospital with sepsis in this patient who did have a fever and elevated white count and tachycardia in this patient with Down syndrome has been chest pain however her workup so far has been negative including a chest x-ray CT angiogram and echocardiogram , patient currently with no other obvious focus of infection except a mildly positive UA as abdominal soft and clinical examination and no evidence of any cellulitis at the IV site or any joint swelling Plan: 1-we will wait for the blood cultures to be finalized 2-patient may benefit from BHAVIN as no other clinical focus infection for her fever 3-Vancomycin pharmacy to dose target trough of 15 while watching her kidney function and Vanco trough close it along with the cefepime should provide adequate coverage for antibiotic therapy We will follow-up clinical condition and cultures to further adjust medication if needed Thank you for this consultation will follow this patient along with you Time with Patient: Greater than 30
[2018-10-25] MEDS: traMADol 50 MG TAB PO PRN ×3 (00:04→15:39)
[2018-10-25] MEDS: LORazepam 2 MG/ML INJ IV PRN ×4 (00:06→18:32)
[2018-10-25] MEDS: SODIUM CHLORIDE 0.9% 1,000 ML IV SCH ×4 (00:11→21:46)
[2018-10-25] MEDS ORDERED: VANCOMYCIN TROUGH DUE 1 EACH MISC MISCELLANE ONE (01:00)
[2018-10-25] MEDS: CEFEPIME 2 GM in SODIUM CHLORIDE 0.9% 100 ML IVPB SCH ×3 (01:43→17:33)
[2018-10-25] MEDS: VANCOMYCIN 1,000 MG in SODIUM CHLORIDE 0.9% 250 ML IVPB SCH (02:25)
[2018-10-25 06:20] LABS: Basophils % (A) 1 %; Eosinophils # (A) 0.2 k/uL (0-0.7); Eosinophils % (A) 2 %; HCT 38.8 % (34.0-46.0); Lymphocytes # (A) 1.8 k/uL (1.0-4.8); Lymphocytes % (A) 25 %; MCH 27.6 pg (25.0-35.0); MCHC 31.1 g/dL (31.0-37.0); MCV 88.9 fL (80.0-100.0); Mean Platelet Volume 7.5; Monocytes # (A) 0.4 k/uL (0-1.0); Monocytes % (A) 6 %; Neutrophils # (A) 4.5 k/uL (1.3-7.7); Neutrophils % (A) 64 %; Platelet Count 235 k/uL (150-450); RBC 4.36 m/uL (3.80-5.40); RDW 15.2 % (11.5-15.5); WBC 7.1 k/uL (3.8-10.6)
[2018-10-25 06:33] LABS: Anion Gap 5 mmol/L; Blood Urea Nitrogen 12 mg/dL (7-17); Carbon Dioxide 20 mmol/L (22-30); Chloride 114 mmol/L (98-107); Glucose 110 mg/dL (74-99); Magnesium 1.7 mg/dL (1.6-2.3); Potassium 4.2 mmol/L (3.5-5.1); Sodium 139 mmol/L (137-145)
--- NOTE | 2018-10-25 08:26 | P.PN ---
Subjective Progress Note Date: 10/25/18 Principal diagnosis: Chest pain This is a 33-year-old female patient with a past medical history significant for prior MRSA infection, significant history of smoking, history of drug abuse, as well as multiple comorbid conditions, who was admitted to the hospital with atypical chest discomfort. So far the workup is unremarkable. The EKG showed sinus tachycardia in the beginning without any significant ST or T-wave abnormalities. The cardiac enzymes were checked and came in to be unremarkable. The echocardiogram showed normal LV function without any wall motion abnormal ities concerning for ischemia. Subsequently the patient was seen by the infectious disease service and currently she is on antibiotic for sepsis of unknown source. A BHAVIN might be needed according to the infectious disease service to rule out any endocarditis. On follow-up with her today, October [id number], she seems to be asymptomatic from a cardiovascular standpoint of view. She denies any chest pain at this moment. She seems to be more awake than yesterday. I did advise the patient to sit in the chair and get out of the bed and try to get up and around. We will continue the current medical regimen. Continue following up with her. Possibly need a BHAVIN. Objective - Vital Signs Vital signs: Vital Signs Temp 97.7 F 10/25/18 04:30 Pulse 68 10/25/18 04:30 Resp 20 10/25/18 04:30 BP 108/67 10/25/18 04:30 Pulse Ox 98 10/25/18 04:30 Intake & Output 10/24/18 10/25/18 10/25/18 18:59 06:59 18:59 Intake Total 462 600 Balance 462 600 Weight 56.8 kg Intake: Oral 462 600 - Constitutional General appearance: Present: no acute distress - Respiratory Respiratory: bilateral: CTA - Cardiovascular Rhythm: regular Heart sounds: normal: S1, S2 - Labs CBC & Chem 7: 10/25/18 06:10 10/25/18 06:10 Labs: Abnormal Lab Results - Last 24 Hours (Table) 10/25/18 Range/Units 06:10 Chloride 114 H (98-107) mmol/L Carbon Dioxide 20 L (22-30) mmol/L Glucose 110 H (74-99) mg/dL Microbiology - Last 24 Hours (Table) 10/24/18 12:30 Urine Culture - Preliminary Urine,Clean Catch 10/23/18 14:14 Blood Culture - Preliminary Blood No Growth after 24 hours Assessment and Plan Assessment: Assessment #1 atypical chest discomfort #2 sepsis of unknown source Plan #1 the patient was ruled out for acute coronary event #2 her chest discomfort is very atypical #3 continue following up with her
[2018-10-25] MEDS: cloNIDine HCL 0.1 MG TAB PO SCH ×3 (09:11→21:47)
[2018-10-25] MEDS: FAMOTIDINE 20 MG/2 ML VIAL IV SCH ×2 (09:25→21:47)
[2018-10-25] MEDS: HEPARIN SODIUM,PORCINE 5,000 UNIT/ML 1 ML VIAL SQ SCH ×2 (09:25→21:30)
[2018-10-25] MEDS: NICOTINE 21MG/24HR PATCH TRANSDERM SCH (09:25)
[2018-10-25] MEDS ORDERED: LORazepam 2 MG/ML INJ IV STA (10:41)
[2018-10-25] MEDS: VANCOMYCIN 1,250 MG in SODIUM CHLORIDE 0.9% 250 ML IVPB SCH ×2 (10:55→18:32)
--- NOTE | 2018-10-25 12:00 | P.PN ---
Subjective This is a pleasant 53 years old female with past medical history of anxiety and back surgery. Previous history of illicit drug abuse including cocaine and heroin . Presents because of chest pain she supposed to go to [place] for withdrawal from Xanax and heroine use. Also patient has recent history of MRSA infection in her spine about 2 months ago status post surgery, at [facility], patient was discharge with 3 weeks of antibiotics with vancomycin and PICC line as she was still in the however she was not following up with her doctors when she left the hospital. She follows up with Dr. Jonathan Forde visited him about one year ago. She has history of bipolar disorder, panic attack and sarthak. She used to be on Wellbutrin and Xanax for that but she does not follow up with a psychiatrist. Now presents because of chest pain and dyspnea of 3 days' duration. Patient says that the chest pain is sharp on the left side about 7-8/10 in severity and aggravated by cough, associated with some dyspnea however she does not have paroxysmal nocturnal dyspnea. She also complaining of some back pain, about 10/10 in severity which is worse than before as per patient, with no weakness in her lower legs or abnormal sensation, or numbness in the perineal area. Patient also complaining of from cough and green phlegm. No dysuria or change in frequency of urination, she has good bowel movement. She can walk. She has sweats and cold feeling. Patient looks agitated Patient states she injects her wean in her hands and she shares needles. She is cocaine and Heroine, she smokes about half pack per day but she denies alcohol Patient has been febrile of 101.2 on admission, she is mildly tachycardic at 108. Labs showing elevated WBC of 11.1 K. INR 1.0. BMP was unremarkable, elevated lactic acid 2.3. Troponin is negative at less than 0.0 12. Liver enzymes are not elevated. Urinalysis showing WBC of 6 and large leukocyte esterase. test is negative. Urine drug 6 brain is positive for opiates and cocaine fluids as negative. We'll send blood culture and urine culture. CT in November of the thorax showing no consolidation or pleural effusion, no PE. Chest x-ray: No acute process. Patient was started on IV fluids, Ativan, nicotine patch, Toradol and vancomycin and cefepime. Toradol was started but was a stepped. Deputy Sheriff Bailiff already evaluated the patient and recommended checking more troponins and echocardiogram. Patient has negative urine test. I offered to do a serum test but patient declined, risks benefits and alternatives are explained to the patient including teratogenic effects and she verbalized understanding but refused the test 10/25/2018 Patient lying in bed still agitated probably from her withdrawal symptoms. Extra benzodiazepine is a provided yesterday and today. Patient could not tolerate or refused MRI of the back. We'll do x-rays. Infectious disease input is recommended. Patient sepsis of unknown source. Patient has no fever today. She remains on antibiotics. Cardiology is evaluating the patient for possible BHAVIN. Vitals stable. Laps improving including lactic acid back to 0.9. Leukocytosis is coming down and WBC is 7.1K. Creatinine 0.5. Patient remains on cefepime and vancomycin. She is on normal saline at 150 mL/h, lower 200 mL per hour Review of systems CONSTITUTIONAL: no fatigue. HEENT: No recent visual problems or hearing problems. Denied any sore throat. CARDIOVASCULAR: No orthopnea, PND, no palpitations, no syncope. PULMONARY: No shortness of breath, no cough, no hemoptysis. GASTROINTESTINAL: No diarrhea, no nausea, no vomiting, no abdominal pain. Normoactive bowel sounds. NEUROLOGICAL: No headaches, no weakness, no numbness. HEMATOLOGICAL: Denies any bleeding or petechiae. GENITOURINARY: Denies any burning micturition, frequency, or urgency. ENDOCRINE: Denies any polyuria or polydipsia. Medication: Tylenol 325 mg, cefepime 100 mL, clonidine 0.1 mg, Pepcid 20 mg, heparin 5000 units, make Imodium 2 mg, Ativan 0.5 mg, nicotine patch 21 mg, normal saline at 100 mm per hour, Ultram 50 mg, vancomycin 1250 mg Objective - Vital Signs Vital signs: Vital Signs Temp 97.5 F L 10/25/18 08:45 Pulse 77 10/25/18 11:36 Resp 16 10/25/18 11:36 BP 118/74 10/25/18 11:36 Pulse Ox 98 10/25/18 11:36 Intake & Output 10/24/18 10/25/18 10/25/18 18:59 06:59 18:59 Intake Total 462 600 240 Balance 462 600 240 Weight 56.8 kg Intake: Oral 462 600 240 Other: # Voids 1 - Exam GENERAL: The patient is alert and oriented x3, not in any acute distress. Well developed, well nourished. HEENT: Pupils are round and equally reacting to light. EOMI. No scleral icterus. No conjunctival pallor. Normocephalic, atraumatic. No pharyngeal erythema. No thyromegaly. CARDIOVASCULAR: S1 and S2 present. No murmurs, rubs, or gallops. PULMONARY: Chest is clear to auscultation, no wheezing or crackles. ABDOMEN: Soft, nontender, nondistended, normoactive bowel sounds. No palpable organomegaly. -MUSCULOSKELETAL: No joint swelling or deformity. Healed Scar in the lower back -EXTREMITIES: No cyanosis, clubbing, or pedal edema. Patient has injection lee on the dorsum of both hands NEUROLOGICAL: Gross neurological examination did not reveal any focal deficits. SKIN: No rashes. - Labs CBC & Chem 7: 10/25/18 06:10 10/25/18 06:10 Labs: Abnormal Lab Results - Last 24 Hours (Table) 10/25/18 Range/Units 06:10 Chloride 114 H (98-107) mmol/L Carbon Dioxide 20 L (22-30) mmol/L Glucose 110 H (74-99) mg/dL Microbiology - Last 24 Hours (Table) 10/24/18 12:30 Urine Culture - Preliminary Urine,Clean Catch 10/23/18 14:14 Blood Culture - Preliminary Blood No Growth after 24 hours Assessment and Plan Assessment: Systemic inflammatory response with fever, tachycardia and leukocytosis Sepsis , possible UTI. Rule out SBE. Substance abuse including cocaine, heroin Recent history of lower spinal infection with MRSA, status post surgery at [facility] about 2 months ago as per patient Low level of magnesium Height lactic acid Cigarette smoker History of bipolar disorder, sarthak History of panic attack Plan: This is a pleasant 53 years old female who presents with sepsis and substance abuse including cocaine and heroine. Continue with antibiotics. Follow-up culture results. Cardiology consult already evaluated the patient. Echocardiogram is ordered. We'll call infectious disease consult. Follow-up culture results. Adjust antibiotics as per infectious disease team which is called. Continue with IV fluids . Continue with the clonidine, symptomatic treatment for her withdrawal. Pain management. Nicotine patch, change vancomyc in to pharmacy to dose. Call psych consult. Given patient's recent history of back infection and sepsis with severe back pain, we'll do MRI of the lower back Labs and medication were reviewed.. Continue same treatment. Continue with symptomatic treatment. Resume home medication. Monitor lytes and vitals. DVT and GI prophylaxis. Further recommendations of the clinical course of the patient DVT prophylaxis: Subcutaneous heparin GI Prophylaxis: Pepcid
--- NOTE | 2018-10-25 17:21 | PN ---
PROGRESS NOTE DATE OF SERVICE: 10/25/2018 REASON FOR FOLLOWUP: Fever and IV drug use and a question of endocarditis. INTERVAL HISTORY: The patient is currently afebrile. No fever has been recorded in the last 24 hours. The patient is still complaining of chest pain and anxiety. She was on Ativan, dose to be increased. No abdominal pain. No nausea, no vomiting or any diarrhea reported. PHYSICAL EXAMINATION: Blood pressure 118/74 with a pulse of 77, temperature 97.5. She is 98% on room air. General description is a middle-aged female lying in bed in no distress. RESPIRATORY SYSTEM: Unlabored breathing. Clear to auscultation anteriorly. HEART: S1, S2. Regular rate and rhythm. ABDOMEN: Soft. No tenderness. LABS: Hemoglobin is 12 with a white count of 7.1. BUN of 12, creatinine 0.50. Blood culture has been on the low side. Blood culture has been negative so far. DIAGNOSTIC IMPRESSION AND PLAN: Patient admitted to hospital with chest pain in this patient who did have a fever with a history of IV drug use. Last use was on the dorsum aspect of the right hand, with no evidence of any cellulitis. Patient did have extensive workup for her chest pain. It has been negative so far. The patient would benefit from a BHAVIN, as there was slight thickening of the mitral valve noticed on the 2D echocardiogram. Keep the patient on cefepime and vancomycin while waiting for the to finalize. Continue with supportive care. MMODL / IJN: [id number] /
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
[2018-10-26] MEDS: LORazepam 2 MG/ML INJ IV SCH ×3 (00:36→12:28)
[2018-10-26] MEDS: CEFEPIME 2 GM in SODIUM CHLORIDE 0.9% 100 ML IVPB SCH ×2 (01:52→08:55)
[2018-10-26] MEDS: VANCOMYCIN 1,250 MG in SODIUM CHLORIDE 0.9% 250 ML IVPB SCH ×2 (02:30→10:59)
[2018-10-26] MEDS: traMADol 50 MG TAB PO PRN (05:18)
[2018-10-26 05:26] VITALS: RESP 16
[2018-10-26 06:30] LABS: Basophils # (A) 0.1 k/uL (0-0.2); Basophils % (A) 1 %; Eosinophils # (A) 0.2 k/uL (0-0.7); Eosinophils % (A) 2 %; HCT 40.2 % (34.0-46.0); HGB 12.4 gm/dL (11.4-16.0); Hypochromasia Slight; Lymphocytes # (A) 2.1 k/uL (1.0-4.8); Lymphocytes % (A) 25 %; MCH 27.7 pg (25.0-35.0); MCHC 30.9 g/dL (31.0-37.0); MCV 89.5 fL (80.0-100.0); Mean Platelet Volume 7.6; Monocytes # (A) 0.7 k/uL (0-1.0); Monocytes % (A) 8 %; Neutrophils # (A) 5.5 k/uL (1.3-7.7); Neutrophils % (A) 63 %; Platelet Count 265 k/uL (150-450); RBC 4.49 m/uL (3.80-5.40); RDW 14.8 % (11.5-15.5); WBC 8.7 k/uL (3.8-10.6)
[2018-10-26 06:39] LABS: Anion Gap 6 mmol/L; Blood Urea Nitrogen 20 mg/dL (7-17); Calcium 9.2 mg/dL (8.4-10.2); Carbon Dioxide 22 mmol/L (22-30); Chloride 111 mmol/L (98-107); Glucose 83 mg/dL (74-99); Potassium 4.8 mmol/L (3.5-5.1); Sodium 139 mmol/L (137-145)
[2018-10-26 08:22] VITALS: TEMP 97.9
[2018-10-26] MEDS ORDERED: DIAZEPAM 2 MG TAB PO STA (08:47)
[2018-10-26] MEDS: NICOTINE 21MG/24HR PATCH TRANSDERM SCH (08:54)
[2018-10-26] MEDS: cloNIDine HCL 0.1 MG TAB PO SCH (08:55)
[2018-10-26] MEDS: SODIUM CHLORIDE 0.9% 1,000 ML IV SCH (08:55)
[2018-10-26] MEDS: HEPARIN SODIUM,PORCINE 5,000 UNIT/ML 1 ML VIAL SQ SCH (08:55)
[2018-10-26] MEDS: FAMOTIDINE 20 MG/2 ML VIAL IV SCH (08:55)
[2018-10-26] MEDS ORDERED: LORazepam 2 MG/ML INJ IV STA (09:13)
[2018-10-26 11:03] VITALS: BP 111/62; PULSE 80
--- NOTE | 2018-10-26 11:30 | P.PN ---
Subjective Progress Note Date: 10/26/18 Principal diagnosis: Chest pain This is a 33-year-old female patient with a past medical history significant for prior MRSA infection, significant history of smoking, history of drug abuse, as well as multiple comorbid conditions, who was admitted to the hospital with atypical chest discomfort. So far the workup is unremarkable. The EKG showed sinus tachycardia in the beginning without any significant ST or T-wave abnormalities. The cardiac enzymes were checked and came in to be unremarkable. The echocardiogram showed normal LV function without any wall motion abnormal ities concerning for ischemia. Subsequently the patient was seen by the infectious disease service and currently she is on antibiotic for sepsis of unknown source. A BHAVIN might be needed according to the infectious disease service to rule out any endocarditis. On follow-up with the patient today, she is feeling overall better. She denies any chest pain or chest discomfort at this point. The plan was to pursue with a BHAVIN this morning but the patient didn't eat. We are going to perform the BHAVIN tomorrow morning. Objective - Vital Signs Vital signs: Vital Signs Temp 97.9 F 10/26/18 07:40 Pulse 80 10/26/18 11:04 Resp 16 10/26/18 11:04 BP 111/62 10/26/18 11:02 Pulse Ox 99 10/26/18 11:02 Intake & Output 10/25/18 10/26/18 10/26/18 18:59 06:59 18:59 Intake Total 720 1750 240 Balance 720 1750 240 Intake: Intake, IV Titration 700 Amount Sodium Chloride 0.9% 1, 700 000 ml @ 100 mls/hr IV . Q10H [facility] Rx#:[id number] Oral 720 1050 240 Other: Voiding Method Toilet Toilet Toilet # Voids 1 1 1 # Bowel Movements 1 - Constitutional General appearance: Present: no acute distress - Respiratory Respiratory: bilateral: CTA - Cardiovascular Rhythm: regular Heart sounds: normal: S1, S2 - Labs CBC & Chem 7: 10/26/18 05:49 10/26/18 05:49 Labs: Abnormal Lab Results - Last 24 Hours (Table) 10/26/18 10/26/18 Range/Units 05:49 05:49 MCHC 30.9 L (31.0-37.0) g/dL Chloride 111 H (98-107) mmol/L BUN 20 H (7-17) mg/dL Microbiology - Last 24 Hours (Table) 10/24/18 12:30 Urine Culture - Final Urine,Clean Catch 10/23/18 14:14 Blood Culture - Preliminary Blood No Growth after 48 hours 10/24/18 11:10 Blood Culture - Preliminary Blood No Growth after 24 hours Assessment and Plan Assessment: Assessment #1 atypical chest discomfort #2 sepsis of unknown source Plan #1 proceed with BHAVIN tomorrow morning
--- NOTE | 2018-10-26 12:13 | P.PN ---
Subjective This is a pleasant 53 years old female with past medical history of anxiety and back surgery. Previous history of illicit drug abuse including cocaine and heroin . Presents because of chest pain she supposed to go to [place] for withdrawal from Xanax and heroine use. Also patient has recent history of MRSA infection in her spine about 2 months ago status post surgery, at [facility], patient was discharge with 3 weeks of antibiotics with vancomycin and PICC line as she was still in the however she was not following up with her doctors when she left the hospital. She follows up with Dr. Jonathan Forde visited him about one year ago. She has history of bipolar disorder, panic attack and sarthak. She used to be on Wellbutrin and Xanax for that but she does not follow up with a psychiatrist. Now presents because of chest pain and dyspnea of 3 days' duration. Patient says that the chest pain is sharp on the left side about 7-8/10 in severity and aggravated by cough, associated with some dyspnea however she does not have paroxysmal nocturnal dyspnea. She also complaining of some back pain, about 10/10 in severity which is worse than before as per patient, with no weakness in her lower legs or abnormal sensation, or numbness in the perineal area. Patient also complaining of from cough and green phlegm. No dysuria or change in frequency of urination, she has good bowel movement. She can walk. She has sweats and cold feeling. Patient looks agitated Patient states she injects her wean in her hands and she shares needles. She is cocaine and Heroine, she smokes about half pack per day but she denies alcohol Patient has been febrile of 101.2 on admission, she is mildly tachycardic at 108. Labs showing elevated WBC of 11.1 K. INR 1.0. BMP was unremarkable, elevated lactic acid 2.3. Troponin is negative at less than 0.0 12. Liver enzymes are not elevated. Urinalysis showing WBC of 6 and large leukocyte esterase. test is negative. Urine drug 6 brain is positive for opiates and cocaine fluids as negative. We'll send blood culture and urine culture. CT in November of the thorax showing no consolidation or pleural effusion, no PE. Chest x-ray: No acute process. Patient was started on IV fluids, Ativan, nicotine patch, Toradol and vancomycin and cefepime. Toradol was started but was a stepped. Boat Rigger already evaluated the patient and recommended checking more troponins and echocardiogram. Patient has negative urine test. I offered to do a serum test but patient declined, risks benefits and alternatives are explained to the patient including teratogenic effects and she verbalized understanding but refused the test 10/25/2018 Patient lying in bed still agitated probably from her withdrawal symptoms. Extra benzodiazepine is a provided yesterday and today. Patient could not tolerate or refused MRI of the back. We'll do x-rays. Infectious disease input is recommended. Patient sepsis of unknown source. Patient has no fever today. She remains on antibiotics. Cardiology is evaluating the patient for possible BHAVIN. Vitals stable. Laps improving including lactic acid back to 0.9. Leukocytosis is coming down and WBC is 7.1K. Creatinine 0.5. Patient remains on cefepime and vancomycin. She is on normal saline at 150 mL/h, lower 200 mL per hour 10/26/2018 Patient today she looks calm her with less physical education however she still very anxious and she feels like agitated. Psychiatrist evaluated her yesterday and he recommended to continue with Ativan 0.5 mg every 6 hours as a standing dose rather than when necessary. Patient confirms to me she was taken Xanax 2 mg every 8 hours at home. And that she was trying to go to [place] to be withdrawn from heroine addiction rather than benzodiazepines. However patient is using high-dose off as a diazepam and she will need treatment for benzodiazepines withdrawal. It looks like most of her symptoms over the withdrawal comes from benzodiazepines. This morning she was very anxious and she was almost wanting to leave AMA. Extra dose of Ativan 0.5 mg was provided as well as oral doses of Valium 3 mg, after that patient felt more relaxed, as double checked with the nurses around noon. Patient has some mild left upper chest pain. She supposed to get for BHAVIN today however she needs this morning despite the advice from the staff and medical team to do so and she was aware she is going for procedure however because of this it was postponed till next day. Patient is going to be nothing by mouth after midnight. Patient today denies back pain or abdominal pain. She was found moving out of bed and moving very freely with no difficulty. Patient has been afebrile for about 48 hours, her last fever was on 10/24/2018 at 100.8. Breasts of Vitas looks stable. Left showing no leukocytosis and creatinine 0.5. Blood culture showing no growth so far. She remains on antibiotics of vancomycin and cefepime Review of systems CONSTITUTIONAL: no fatigue. HEENT: No recent visual problems or hearing problems. Denied any sore throat. CARDIOVASCULAR: No orthopnea, PND, no palpitations, no syncope. PULMONARY: No shortness of breath, no cough, no hemoptysis. GASTROINTESTINAL: No diarrhea, no nausea, no vomiting, no abdominal pain. Normoactive bowel sounds. NEUROLOGICAL: No headaches, no weakness, no numbness. HEMATOLOGICAL: Denies any bleeding or petechiae. GENITOURINARY: Denies any burning micturition, frequency, or urgency. ENDOCRINE: Denies any polyuria or polydipsia. Medication: Tylenol 325 mg, cefepime 100 mL, clonidine 0.1 mg, Pepcid 20 mg, heparin 5000 units, make Imodium 2 mg, Ativan 0.5 mg, nicotine patch 21 mg, normal saline at 100 mm per hour, Ultram 50 mg, vancomycin 1250 mg, Valium 3 mg Objective - Vital Signs Vital signs: Vital Signs Temp 97.9 F 10/26/18 07:40 Pulse 80 10/26/18 11:04 Resp 16 10/26/18 11:04 BP 111/62 10/26/18 11:02 Pulse Ox 99 10/26/18 11:02 Intake & Output 10/25/18 10/26/18 10/26/18 18:59 06:59 18:59 Intake Total 720 1750 240 Balance 720 1750 240 Intake: Intake, IV Titration 700 Amount Sodium Chloride 0.9% 1, 700 000 ml @ 100 mls/hr IV . Q10H [facility] Rx#:[id number] Oral 720 1050 240 Other: Voiding Method Toilet Toilet Toilet # Voids 1 1 1 # Bowel Movements 1 - Exam GENERAL: The patient is alert and oriented x3, not in any acute distress. Well developed, well nourished. HEENT: Pupils are round and equally reacting to light. EOMI. No scleral icterus. No conjunctival pallor. Normocephalic, atraumatic. No pharyngeal erythema. No thyromegaly. CARDIOVASCULAR: S1 and S2 present. No murmurs, rubs, or gallops. PULMONARY: Chest is clear to auscultation, no wheezing or crackles. ABDOMEN: Soft, nontender, nondistended, normoactive bowel sounds. No palpable organomegaly. -MUSCULOSKELETAL: No joint swelling or deformity. Healed Scar in the lower back -EXTREMITIES: No cyanosis, clubbing, or pedal edema. Patient has injection lee on the dorsum of both hands NEUROLOGICAL: Gross neurological examination did not reveal any focal deficits. SKIN: No rashes. - Labs CBC & Chem 7: 10/26/18 05:49 10/26/18 05:49 Labs: Abnormal Lab Results - Last 24 Hours (Table) 10/26/18 10/26/18 Range/Units 05:49 05:49 MCHC 30.9 L (31.0-37.0) g/dL Chloride 111 H (98-107) mmol/L BUN 20 H (7-17) mg/dL Microbiology - Last 24 Hours (Table) 10/24/18 12:30 Urine Culture - Final Urine,Clean Catch 10/23/18 14:14 Blood Culture - Preliminary Blood No Growth after 48 hours 10/24/18 11:10 Blood Culture - Preliminary Blood No Growth after 24 hours Assessment and Plan Assessment: Systemic inflammatory response with fever, tachycardia and leukocytosis Sepsis , Rule out SBE. benzodiazepine withdrawal Substance abuse including cocaine, heroin and benzodiazepines Recent history of lower spinal infection with MRSA, status post surgery at [facility] about 2 months ago as per patient Low level of magnesium Height lactic acid Cigarette smoker History of bipolar disorder, sarthak History of panic attack Plan: This is a pleasant 53 years old female who presents with sepsis and substance a buse including cocaine and heroine, and benzodiazepine. Continue with antibiotics. Follow-up culture results. Cardiology consult already evaluated the patient. Patient needs BHAVIN. We'll call infectious disease consult. Follow-up culture results. Adjust antibiotics as per infectious disease team which is called. Continue with IV fluids . Continue with the clonidine, symptomatic treatment for her withdrawal. Pain management. Nicotine patch, change vancomycin to pharmacy to dos.psych consult is appreciated. There is very low suspicion for back infection as patient is as symptomatic with no more back pain. Labs and medication were reviewed.. Continue same treatment. Continue with sy mptomatic treatment. Resume home medication. Monitor lytes and vitals. DVT and GI prophylaxis. Further recommendations of the clinical course of the patient DVT prophylaxis: Subcutaneous heparin GI Prophylaxis: Pepcid
--- NOTE | 2018-10-26 15:25 | PN ---
PROGRESS NOTE DATE OF SERVICE: 10/26/2018. REASON FOR FOLLOWUP: Fever with question of possible endocarditis. INTERVAL HISTORY: The patient is currently afebrile. For the last few days, the patient has been feeling better. The patient's chest pain has slightly improved. No nausea, no vomiting. No abdominal pain. No diarrhea. PHYSICAL EXAMINATION: Blood pressure is 111/62 with a pulse of 80. Temperature 97.9. She is 99% on room air. General description is a middle-aged female up in the bed in no distress. Respiratory system: Unlabored breathing. Clear to auscultation anteriorly. Heart S1, S2. Regular rate and rhythm. ABDOMEN: Soft, no tenderness. LABS: Hemoglobin is 12.4, white count 8.7, BUN of 20, creatinine 0.55. Blood culture has been negative so far. DIAGNOSTIC IMPRESSION AND PLAN: Patient admitted to the hospital with chest pain. Workup so far including a CT angiogram and echocardiogram did not show any abnormality. Mild thickening on the mitral valve awaiting the BHAVIN to rule out endocarditis although clinical suspicion is low. The patient currently on Vanco and cefepime to continue and continue supportive care. MMODL / IJN: [id number] /
[2018-10-26] MEDS ORDERED: cloNIDine HCL 0.1 MG TAB PO SCH (21:00)
--- NOTE | 2018-10-26 22:10 | CONS ---
CONSULTATION DATE OF SERVICE: 10/26/2018. PURPOSE FOR CONSULTATION: Evaluate for history of psychiatric issues and current substance abuse problems. INTERVAL HISTORY: Patient has been doing fair. When I talked to the nurse, she noted that the patient was signing out involuntarily. In talking to the patient, she stated that she felt that she had accomplished as much as she could during her hospital stay. She had 1 further test that had been recommended for tomorrow though she felt that she did not need further evaluation. She notes that she was having some issues with left-sided chest pain which was quite prominent just before her coming into the hospital that seems to be relieved. There was some question as to whether she may have just been experiencing hyperventilation. In regards to substance use issues, the patient said that she has a plan that she would look into entering [place]. She said her first step at the discharge will be to go to [place] to be evaluated by [facility]. She said that her big concern is not to get involved in any drugs on the street. She continues to insist that she has high anxiety and that Xanax is the one medication that can treat her anxiety. She says that she anticipates she will not be discharged on Xanax. She did not show much insight into the idea that she may simply be showing early withdrawal in between doses of Xanax which then would lead her to feeling relief when she took her next dose of Xanax. She was not quite able to conceptualize that she may in fact just be treating early withdrawal and a vicious cycle as opposed to actually treating some underlying condition. The patient stated that she was not inclined to be transferred to the psychiatric unit or to look into any further treatment with her psychotropic medications at this time. She indicated that she did not have any thoughts of harm to herself. She stated that she was very motivated in staying away from any street drugs which have been problematic for her in the past including up to her recent admission. When I saw the patient, she was packing some of her belongings up to get ready to go. It was noteworthy that she went in and out of the bathroom as she put on makeup. She was fairly neatly dressed and groomed and took care of personal care. She answered questions appropriately. Her thoughts were clear. There was no indication of thought disorder. She did not show significant signs of anxiety or depression. For the most part, her mood was even. Cognition was clear. There was no indication of thought disorder. ASSESSMENT: I will continue the primary diagnosis of benzodiazepine dependence. Whether or not depression is in the picture would require a longer term evaluation especially with a period of time where she could be off all abusive substances including prescribed benzodiazepines. She is not voicing any thoughts of self-harm. She had a followup plan in place. I indicated to the patient that she does have some acute risk for seizures in withdrawing from benzodiazepines abruptly. The patient stated that she understood the risk. She stated that she was not interested in further followup through this hospital. MMODL / IJN: [id number] /
[2018-10-27] MEDS ORDERED: VANCOMYCIN TROUGH DUE 1 EACH MISC MISCELLANE ONE (01:00)
== END 2018-10-26 14:40 | disposition left against medical advice (07) | DRG 872 ==
LOC: EC 13:01 → 3SCARD 18:11 → OBSVTOIN 10-25 14:29
PROVIDERS: ADMIT Internal Medicine; ATTEND Internal Medicine
DX: A41.9 Sepsis, unspecified organism (principal); F11.20 Opioid dependence, uncomplicated; F13.239 Sedative, hypnotic or anxiolytic dependence with withdrawal, unspecified; I38 Endocarditis, valve unspecified; E83.42 Hypomagnesemia; F17.210 Nicotine dependence, cigarettes, uncomplicated; F31.9 Bipolar disorder, unspecified; F41.0 Panic disorder [episodic paroxysmal anxiety]; F41.1 Generalized anxiety disorder; I25.2 Old myocardial infarction; Q90.9 Down syndrome, unspecified; Z79.899 Other long term (current) drug therapy; Z86.14 Personal history of Methicillin resistant Staphylococcus aureus infection
CPT/HCPCS: 36415; 71046; 71275; 80048; 80053; 80202; 80306; 81001; 81025; 82150; 82565; 83605; 83690; 83735; 83880; 84484; 85025; 85379; 85610; 85730; 87040; 87086; 87502; 93005; 93306; 96361; 96365; 96366; 96367; 96375; 99285